=== PATIENT | female | born 1945 | race Caucasian/White ===

== ENCOUNTER 2016-07-27 18:22 | Inpatient (IN) | payer MEDICARE, MEDICAID, OTHER ==
[~2016-07-27] VITALS: Ht 152.4 cm; Wt 68.0 kg
[~2016-07-27 18:22] MED LIST: BACL10TA PO; LISI-567 PO; [UNRECOGNIZED DRUG - CODE] PO
[2016-07-27 18:26] VITALS: BP 100/43; PULSE 108; RESP 16; O2SAT 90
--- NOTE | 2016-07-27 18:27 | ED.REPORT ---
HPI-General Illness Date of Service Jul 27, 2016 ED Provider: Kirk Restrepo Patient is a 70 year old female with an unknown hx who presents to the ED via EMS from [facility] for a L distal femur fracture s/p falling 2 feet from her bed to a concrete floor last night. Patient is non-verbal at baseline and does not have anyone to accompany her. Unable to obtain further history secondary to patient's condition. Nursing Notes Stated Complaint: FEMUR FRACTURE Chief Complaint: Extremity Trauma Nursing Notes Reviewed: Yes Allergies: Coded Allergies: hydromorphone (Verified Allergy, Intermediate, hives, 07/27/16) ondansetron (Verified Allergy, Intermediate, hives, 07/27/16) Contrast Media (Verified Allergy, Unknown, 07/27/16) iodine (Verified Allergy, Unknown, 07/28/16) From care center list Scheduled Baclofen (Baclofen) 10 Mg Tablet 10 MG PO QID Lisinopril (Lisinopril) 20 Mg Tablet 20 MG PO DAILY Methadone (Methadone) 5 Mg Tablet 5 MG PO BID Morphine Sulfate (Morphine Sulfate) 10 Mg/0.5 Ml Syringe 10 MG PO ONCE Scheduled PRN Bisacodyl (Dulcolax Rectal) 10 Mg Supp.rect 10 MG RC DIRECTED PRN PRN For Constipation Miscellaneous Medications Acetaminophen (Acetaminophen Liquid) 325 Mg/10.15 Ml Solution 325 ML PO Magnesium Hydroxide (Milk of Magnesia) 400 Mg/5 Ml Oral.susp 400 MG PO Morphine Sulfate Oral Soln (Morphine Sulfate Oral Soln) 10 Mg/5 Ml Solution 10 MG PO Na Phos,M-B/Na Phos,Di-Ba (Fleet Enema) 133 Ml Enema Unknown Dose RC General Time Seen by MD: 18:27 Transferred From: long term Chief Complaint Other (Left Lower extremity pain ) Hx Obtained From: EMS Arrived By: Ambulance Sudden in Onset?: Yes Past Medical History Past Medical History CVA contractures feeding tube non-verbal Unable to Obtain History Past medical history, Past surgical history, Family history, Smoking history, Social history, Occupation, Ambulatory status Review of Systems Unable to Obtain ROS Mental status Physical Exam Vital Signs Vital Signs Date Time Temp Pulse Resp B/P Pulse Ox O2 Delivery O2 Flow Rate FiO2 07/27/16 21:35 36.5 07/27/16 21:34 87 16 109/43 94 Room Air 07/27/16 18:26 36.6 108 16 100/43 90 Room Air Initial VS: Reviewed, Vital signs abnormal General/Constitutional: Awake, Alert Non-verbal Thin, ill appearing, laying in bed Head / Eyes: Atraumatic, Normocephalic EOM are normal. Pupils are equal, round, and reactive to light ENT: No facial swelling Unable to assess due to pt condition Neck: Supple no tracheal deviation. Respiratory / Chest: Breath sounds NL, Breath sounds = bilat, No respiratory distress Cardiovascular: Regular rhythm, Peripheral circulation NL, Pulses = bilaterally Heart Rate / Rhythm: Positive: Tachycardia Abdomen: Atraumatic, Soft, Non-tender, No guarding, No rebound, BS normoactive Seems to be tender about L knee and up towards proximal LLE No tenderness or flinching with palpation distal to L knee Good DP pulses of bilat LE Good cap refill Unable to assess strength due to pt condition No significant ecchymosis to LLE Skin: Warm, Dry no rashes or pallor appreciated. Mental Status: Positive: Responds to painful stim (with flinching ) Nonverbal and does not communicate Alert Contractures of all extremities Not answering questions or responding to commands Unable to assess strength or sensation Unable to Evaluate: Positive: Unresponsive Unable to assess due to pt condition Interpretation & Diagnostics Lab Results Interpretation Result Diagram: 07/27/16211207/27/162112 Test 07/27/16 21:13 White Blood Count 12.8th/mm3 (3.8-10.1) Red Blood Count 4.50mil/mm3 (3.90-5.20) Hemoglobin 14.3g/dL (12.0-15.6) Hematocrit 41.8% (35.0-46.0) Mean Corpuscular Volume 92.9fL (81-100) Mean Corpuscular Hemoglobin 31.8pg (27.0-35.0) Mean Corpuscular Hemoglobin Concent 34.2% (32.0-37.0) Red Cell Distribution Width 12.3% (12.3-15.4) Platelet Count 232bil/L (150-400) Neutrophils (%) (Auto) 76.7% (40-74) Lymphocytes (%) (Auto) 13.3% (14-46) Monocytes (%) (Auto) 9.6% (4-12) Eosinophils (%) (Auto) 0.1% (0-5) Basophils (%) (Auto) 0.1% (0-3) Prothrombin Time 10.6sec (8.1-12.5) Prothromb Time International Ratio 0.99ratio Activated Partial Thromboplast Time 28.1sec (22.8-33.0) Sodium Level 135mEq/L (134-144) Potassium Level 4.4mEq/L (3.5-5.2) Chloride Level 98mEq/L (97-108) Carbon Dioxide Level 23mmol/L (18-29) Blood Urea Nitrogen 22mg/dL (8-27) Creatinine 0.50mg/dL (0.57-1.00) Estimat Glomerular Filtration Rate 174mL/min (>59) Glucose Level 158mg/dL (60-99) Calcium Level 8.9mg/dL (8.5-10.1) Magnesium Level 2.0mg/dL (1.6-2.6) Total Bilirubin 0.4mg/dL (0.0-1.2) Aspartate Amino Transf (AST/SGOT) 15U/L (0-50) Alanine Aminotransferase (ALT/SGPT) 14U/L (0-32) Alkaline Phosphatase 110U/L (25-165) Troponin T 0.010ug/L (0.0-0.011) Total Protein 6.7g/dL (6.4-8.4) Albumin 3.4g/dL (3.4-5.0) Lipase 19U/L (13-60) Procalcitonin 0.09ng/mL (0.00-0.08) Hold Live Top Tube Received (Received) Alcohols < 10mg/dL (0-10) Lab Results Interpretation: CT LOWER EXTREMITY LEFT: IMPRESSION: Displaced fracture of distal L femur. Harshad Ku M.D. ECG Interpretation ECG Interpretation: Sinus tachycardia with a rate of 104 Low voltage, precordial leads abnormal R wave progression, early transition Time: 20:01 Interpreted by: ED physician X-Ray Chest Interpretation Chest Xray Interpretation: IMPRESSION: 1. No acute pulmonary process. 2. Multiple rib deformities on the right, appearing grossly unchanged. It is noted that there is appearance of questionable increased lucency in the posterior lateral right second rib. Subacute fracture cannot be definitively excluded versus artifact. Dictated by: Mikaela Orourke M.D. on 07/27/2016 at 20:54 Approved by: Mikaela Orourke M.D. on 07/27/2016 at 20:57 View: Portable, 1 view Interpretation / Wet Read by: Interpret - Radiologist X-Ray Interpretation Xray Interpretation: IMPRESSION: Comminuted distal femoral fracture as above. Dictated by: Mikaela Orourke M.D. on 07/27/2016 at 21:12 Approved by: Mikaela Orourke M.D. on 07/27/2016 at 21:13 Study Performed: 2-view X-Ray Ordered: Femur left Interpretation / Wet Read by: Interpret - Radiologist Xray Interpretation: IMPRESSION: Limited evaluation as above without gross visualized fracture. If clinical concern persists, additional imaging is recommended. Dictated by: Mikaela Orourke M.D. on 07/27/2016 at 21:07 Approved by: Mikaela Orourke M.D. on 07/27/2016 at 21:08 X-Ray Ordered: Pelvis (and hip) Interpretation / Wet Read by: Interpret - Radiologist Xray Interpretation: IMPRESSION: Distal femoral fracture with anterior angulation. Dictated by: Mikaela Orourke M.D. on 07/27/2016 at 21:09 Approved by: Mikaela Orourke M.D. on 07/27/2016 at 21:12 X-Ray Ordered: Knee left Interpretation / Wet Read by: Interpret - Radiologist CT Head Interpretation IMPRESSION: 1. No acute intracranial process. 2. Moderate atrophy and chronic microvascular ischemic changes. 3. Ventricular shunt as above. No priors are available for comparison. Dictated by: Mikaela Orourke M.D. on 07/27/2016 at 21:18 Approved by: Mikaela Orourke M.D. on 07/27/2016 at 21:19 Study: Head CT no contrast Interpretation / Wet Read by: Interpret - Radiologist CT C-Spine Interpretation IMPRESSION: Multilevel degenerative changes without visualized fracture. Dictated by: Mikaela Orourke M.D. on 07/27/2016 at 21:16 Approved by: Mikaela Orourke M.D. on 07/27/2016 at 21:18 Study type: CT no contrast Interpretation / Wet Read by: Interpret - Radiologist Re-Eval/Medical Decision Med Decision/Clinical Course In summary, 70-year-old female presenting to the ED for evaluation after a fall. She does have a distal left femur fracture. Patient's care is competent by the fact that she is nonverbal at baseline. Rest of her workup here did not demonstrate any other injuries at this time. Head CT with no evidence of acute bleed or abnormality, cervical spine CT also negative for acute abnormality. Laboratory studies reviewed, mildly elevated white blood cell count. Neurovascular status intact distal to the injury. Discussed with Dr. Benito. We will make her nothing by mouth at midnight, possible trip to the OR tomorrow. No need for reduction or any other intervention with respect to her fracture at this time. Discussed the patient with the hospitalist, who will admit overnight. Time of Eval: 20:07 Re-Evaluation/Progress Note: After meds were given, pt developed hives on her R arm where IV is in place. She does not appear to have respiratory symptoms and is improving with Benadryl. Time of Eval: 22:08 Re-Evaluation/Progress Note: Informed pt of plan for admission. Consultation #1: Referral / Consult Name: Anup Benito MD Consulted With: Orthopedic Call Returned at: 21:56 Slot Operations Manager: Agrees with eval, Agrees with plan Note: Discussed patient's case. NPO overnight and non-contrast CT of femur. Consultation #2: Referral / Consult Name: John Ocampo MD Consulted With: Hospitalist Call Returned at: 22:16 Slot Operations Manager: Will see patient, Agrees with eval, Agrees with plan, Accepts admit Note: Discussed pt's case. Accepts admit. Counseled Regarding: Diagnosis, Lab results, Need for admission Discharge & Departure Primary Impression: Femoral distal fracture Encounter type: initial encounter Fracture type: closed Fracture morphology : unspecified fracture morphology Laterality: left Qualified Code: S72.402A - Unspecified fracture of lower end of left femur, initial encounter for closed fracture Disposition: ADMITTED TO HOSPITAL Discharge Condition All VS Reviewed: Yes Condition: Stable Referrals: OTHER,PHYSICIAN (PCP) Ashley Schaeffer MD (Family) Scribe Attestation Portions of this note were transcribed by Huey Abbasi. I, Dr. Restrepo personally performed the history, physical exam and medical decision-making; I reviewed and confirmed the accuracy of the information in the transcribed note. Signed by: Huey Abbasi 07/27/16, 0005 copies to: Ashley Schaeffer MD, William B MD Jul 27, 2016 18:27 HUEY ABBASI Jul 27, 2016 19:25
[2016-07-27] MEDS ORDERED: 0.9% Sodium Chloride 1,000 ML IV ONE (19:33)
[2016-07-27] MEDS ORDERED: Ondansetron 2 mg/mL 2 mL Inj IVPUSH PRN ×2 (19:35→23:10)
[2016-07-27] MEDS ORDERED: HYDROmorphone 0.5 mg/0.5 mL iSecure Syringe IVPUSH PRN (19:35)
--- NOTE | 2016-07-27 20:59 | DRSVH ---
PROCEDURE: X-RAY CHEST ONE VIEW, PORTABLE ([id number]) INDICATIONS: fall TECHNIQUE: One view of the chest was acquired. COMPARISON: None. FINDINGS: Limited examination secondary to patient positioning. Surgical changes and devices: None. Lungs and pleura: No pleural effusions or pneumothorax. Lungs are clear. Mediastinum: Mediastinal contours appear normal. Heart size is normal. Bones and chest wall: No suspicious bony lesions. Overlying soft tissues appear unremarkable. Ther e is deformity of multiple right sided ribs. These appear unchanged compared to prior exam, with the exception of potential increased lucency within the second posterior lateral rib. However, this could be secondary to positioning. IMPRESSION: 1. No acute pulmonary process. 2. Multiple rib deformities on the right, appearing grossly unchanged. It is noted that there is appe arance of questionable increased lucency in the posterior lateral right second rib. Subacute fracture cannot be definitively excluded versus artifact. Dictated by: Mikaela Orourke M.D. on 07/27/2016 at 20:54 Approved by: Mikaela Orourke M.D. on 07/27/2016 at 20:57
--- NOTE | 2016-07-27 21:10 | DRSVH ---
PROCEDURE: X-RAY PELVIS W/LAT HIP (LT) ([id number]) INDICATIONS: fall TECHNIQUE: AP pelvis with lateral view(s) of the left hip(s). COMPARISON: None. FINDINGS: Bones: There is significantly suboptimal patient positioning. However, no gross hip fracture is ident ified. Bones and the pubic symphysis are overlapping, limiting evaluation. However, no gross fracture s identified. The left iliac wing is not well-visualized for evaluation. Soft tissues: The visualized bowel gas pattern is normal. No suspicious soft tissue calcifications. IMPRESSION: Limited evaluation as above without gross visualized fracture. If clinical concern persis ts, additional imaging is recommended. Dictated by: Mikaela Orourke M.D. on 07/27/2016 at 21:07 Approved by: Mikaela Orourke M.D. on 07/27/2016 at 21:08
--- NOTE | 2016-07-27 21:14 | DRSVH ---
PROCEDURE: X-RAY LEFT KNEE, ONE OR TWO VIEWS ([id number]) INDICATIONS: fall TECHNIQUE: 2 views of the knee were acquired. COMPARISON: None. FINDINGS: Bones: There is a comminuted fracture of the distal femur immediately superior to the femoral condyle s. It demonstrates anterior angulation with an approximate 28 mm overlap of proximal and distal fragm ents. Soft tissues: No joint effusion. No suspicious soft tissue calcifications. There is focal area of high density material overlying the inferior joint space of uncertain etiology. IMPRESSION: Distal femoral fracture with anterior angulation. Dictated by: Mikaela Orourke M.D. on 07/27/2016 at 21:09 Approved by: Mikaela Orourke M.D. on 07/27/2016 at 21:12
--- NOTE | 2016-07-27 21:15 | DRSVH ---
PROCEDURE: X-RAY LEFT FEMUR, TWO VIEWS ([id number]) INDICATIONS: fall TECHNIQUE: 2 views of the femur were acquired. COMPARISON: None. FINDINGS: Bones: Comminuted fracture of the distal femur medially superior to the femoral condyles. There is an terior angulation. Fracture overlap is better characterized on knee x-ray dated 07/27/16. Soft tissues: No suspicious soft tissue calcifications or masses. IMPRESSION: Comminuted distal femoral fracture as above. Dictated by: Mikaela Orourke M.D. on 07/27/2016 at 21:12 Approved by: Mikaela Orourke M.D. on 07/27/2016 at 21:13
--- NOTE | 2016-07-27 21:20 | DRSVH ---
PROCEDURE: CT CERVICAL SPINE WITHOUT CONTRAST ([id number]) INDICATIONS: fall TECHNIQUE: Noncontrast 3 mm thick sections acquired from the skull base to the T4 level. Sagittal and coronal r eformats were then constructed. For radiation dose reduction, the following was used: automated exp osure control, adjustment of mA and/or kV according to patient size. COMPARISON: None. FINDINGS: Image quality: Excellent. Bones: No fractures or dislocations. Visualized superior ribs are intact. There is trace anterolis thesis of C2 on C3. Multilevel degenerative changes are present within the cervical spine. Soft tissues: Prevertebral soft tissues are normal in thickness. No paravertebral hematomas. No ap ical pneumothoraces. IMPRESSION: Multilevel degenerative changes without visualized fracture. Dictated by: Mikaela Orourke M.D. on 07/27/2016 at 21:16 Approved by: Mikaela Orourke M.D. on 07/27/2016 at 21:18
--- NOTE | 2016-07-27 21:21 | DRSVH ---
PROCEDURE: CT BRAIN WITHOUT CONTRAST ([id number]) INDICATIONS: fall TECHNIQUE: Noncontrast 4.5 mm thick angled axial sections acquired from the foramen magnum to the vertex, with c oronal reformats. COMPARISON: None. FINDINGS: Image quality: Excellent. CSF spaces: Basal cisterns are patent. No extra-axial fluid collections. The ventricles are symmet gutierrez in size and shape. Ventricular shunt is present from a right posterior approach with distal tip immediately anterior to the right frontal horn. No priors are available for comparison. Brain: No intracranial bleeds or masses. There is cerebral volume loss for age, with resultant vent ricular and sulcal prominence. There are periventricular and deep white matter chronic small vessel ischemic changes. There is intracranial internal carotid artery atherosclerosis. Skull and face: Calvarium and visualized facial bones appear intact, without suspicious lesions. Sinuses: Visualized sinuses and mastoids are clear. IMPRESSION: 1. No acute intracranial process. 2. Moderate atrophy and chronic microvascular ischemic changes. 3. Ventricular shunt as above. No priors are available for comparison. Dictated by: Mikaela Orourke M.D. on 07/27/2016 at 21:18 Approved by: Mikaela Orourke M.D. on 07/27/2016 at 21:19
[2016-07-27 21:22] LABS: BASOPHILS % (AUTO) 0.1 % (0-3); EOSINOPHILS % (AUTO) 0.1 % (0-5); MONOCYTES % (AUTO) 9.6 % (4-12); Mean Corpuscular Hemoglobin 31.8 pg (27.0-35.0); Mean Corpuscular Volume 92.9 fL (81-100); NEUTROPHILS % (AUTO) 76.7 % (40-74); Platelet Count 232 bil/L (150-400)
[2016-07-27 21:34] VITALS: BP 109/43; PULSE 87; RESP 16; O2SAT 94
[2016-07-27 21:52] LABS: INR 0.99 ratio
[2016-07-27 22:27] LABS: Lipase 19 U/L (13-60)
[2016-07-27 23:35] VITALS: BP 107/63; PULSE 105; RESP 16; O2SAT 94
[2016-07-28] VITALS (15 sets, daily range): BP systolic 95–141; BP diastolic 38–84; PULSE 83–135; RESP 13–18; O2SAT 88–99
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
[2016-07-28] MEDS ORDERED: MAGN400O4 G-TUBE (01:16)
[2016-07-28] MEDS ORDERED: BISA10SU61 RC (01:18)
[2016-07-28] MEDS ORDERED: NA P133E23 PR (01:19)
[2016-07-28] MEDS ORDERED: ACET325S PO (01:21)
[2016-07-28] MEDS ORDERED: MORP10SO G-TUBE ×2 (01:26→08:15)
[2016-07-28] MEDS ORDERED: METH5TAB3 G-TUBE (02:26)
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
[2016-07-28] MEDS: 0.9% Sodium Chloride 1,000 ML IV SCH ×2 (05:41→23:26)
--- NOTE | 2016-07-28 07:35 | NUR ---
Contacted [facility] multiple times to obtain history and complete RX list, list was received at 0645 via fax and placed in chart. MD notified of pain regime of 10mg Morphine daily, additional PRN morphine, and 5mg methadone daily at 0400. Care continues
[2016-07-28] MEDS ORDERED: CHOL200047 G-TUBE (07:52)
[2016-07-28] MEDS ORDERED: DOCU-41 G-TUBE (07:52)
[2016-07-28] MEDS ORDERED: ACET160S G-TUBE (07:52)
[2016-07-28] MEDS ORDERED: CALC-243 G-TUBE (08:04)
[2016-07-28] MEDS ORDERED: BACL10TA G-TUBE (08:04)
[2016-07-28] MEDS ORDERED: LISI30TA5 G-TUBE (08:04)
[2016-07-28] MEDS: Famotidine Inj 20 MG in IV Premix 1 EACH IV SCH ×3 (08:30→21:14)
[2016-07-28] MEDS: Acetaminophen IV 1,000 MG in IV Premix 1 EACH IV PRN ×2 (08:51→20:58)
--- NOTE | 2016-07-28 11:36 | DRSVH ---
PROCEDURE: CT FEMUR LEFT W/O CONTRAST ([id number]) INDICATIONS: Left distal femur fx; eval if extends into joint TECHNIQUE: Noncontrast 3 mm axial sections acquired of the left femur, with coronal and sagittal reformats. For radiation dose reduction, the following was used: automated exposure control, adjustment of mA and/ or kV according to patient size. COMPARISON: [facility], CR, XR FEMUR 2VW LT, 07/27/2016, 20:06. [facility], CR, XR PELVIS W LATERAL HIP LT, 07/27/2016, 20:06. FINDINGS: Image quality: Diagnostic. Bones: The bone mineralization is diffusely decreased. This does result in difficulty evaluating the osseous structures for subtle abnormalities. There is a transverse mildly comminuted fracture prese nt involving the distal shaft of the left femur with posterior displacement of the distal fracture fr agment and mild lateral angulation of the distal fracture fragment. No fracture lines are seen exten ding into the knee joint. No additional fractures of the knee are evident. Imaged portions of the k nee joint are within normal limits. Incidental note is made of fusion of the proximal tibiofibular j oint. There probably are degenerative changes of the knee joint. There is mild depression noted inv olving the lateral tibial plateau, which probably is related to previous trauma rather than an acute fracture. While the majority of the tibia and fibula are included on this examination, the are not a dequately evaluated related to beam hardening artifact as the bone is within the plane of imaging. A high attenuation structure is identified within the subcutaneous tissues along the region of the kne e joint, which is of uncertain etiology and may represent debris within the knee or subcutaneous tiss ues. Soft tissues: Soft tissue edema is noted about the fracture site. There is a small knee joint effusi on. Mild to moderate muscle atrophy is noted involving the quadriceps, hamstrings, and adductor musc le groups. Imaged portions of the pelvis demonstrate an apparent chronic right superior pubic ramus fracture. It high attenuation material within the urinary bladder is noted, which is layering depend ently and probably represent small bladder calculi. IMPRESSION: 1. Minimally comminuted distal left femoral shaft fracture without intra-articular extension. 2. Prominent osteopenia of the left femur. 3. Mild depression of that the lateral proximal tibial plateau is felt to be related to previous tra corin, particularly given fusion of the proximal tibiofibular joint. Please correlate clinically. 3. High attenuation material within the subcutaneous tissues along the lateral margin of the knee is of uncertain etiology or significance. This may represent debris. 4. High attenuation material within the urinary bladder is suspicious for multiple bladder calculi. Note: The preliminary report provided by [facility] is concordant with the final report. Dictated by: Alfredo Goode M.D. on 07/28/2016 at 10:26 Approved by: Alfredo Goode M.D. on 07/28/2016 at 10:35
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
--- NOTE | 2016-07-28 13:18 | NUR ---
Pt off unit Pt to O.R. at 1315 hrs.
[2016-07-28] MEDS ORDERED: CeFAZolin 2 Gm/50 mL D5W Duplex Bag IV ONE (13:31)
[2016-07-28] MEDS: Lactated Ringer's 1,000 ML IV SCH ×2 (13:42→15:34)
[2016-07-28] MEDS ORDERED: Lactated Ringer's 500 ML IV PRN (14:29)
[2016-07-28] MEDS ORDERED: EPHEDrine Sulfate 50 mg/mL Inj IVPUSH PRN (14:30)
[2016-07-28] MEDS ORDERED: Phenylephrine 10,000 mCg/mL Inj IVPUSH PRN (14:30)
[2016-07-28] MEDS ORDERED: Dexamethasone 4 mg/mL Inj IVPUSH PRN (14:30)
[2016-07-28] MEDS ORDERED: MetoCLOpramide 5 mg/mL 2 mL Inj IVPUSH PRN (14:30)
[2016-07-28] MEDS ORDERED: Labetalol 5 mg/mL 4 mL Inj IV PRN (14:30)
[2016-07-28] MEDS ORDERED: Atropine 0.4 mg/mL Inj IVPUSH PRN (14:30)
[2016-07-28] MEDS ORDERED: fentaNYL-PF 50 mCg/mL 2 mL Inj IVPUSH PRN (14:30)
[2016-07-28] MEDS ORDERED: Bupivacaine-MPF 0.5% W/EPI 30 mL Inj INJ ONE (15:34)
--- NOTE | 2016-07-28 16:02 | PCM.ANEP1 ---
Post Anesthesia PACU Phase 1 Assessment Vital Signs Vital Signs Date Time Temp Pulse Resp B/P Pulse Ox O2 Delivery O2 Flow Rate FiO2 07/28/16 15:49 36.8 94 16 110/40 99 Simple Mask 9 07/28/16 12:03 36.7 128 16 141/79 99 Room Air 07/28/16 08:53 97 Anesthetic Administered: GA Level of Alertness: Awake, talking (baseline) CISSE's with Equal Strength: Yes Pain: No Nausea or Vomiting: No CV Function & Hydration Stable: Yes Airway Device: Endotrachial Tube Oxygen Delivery: Simple Mask Lungs: Clear to Auscultation, Normal Air Movement Summary Stable in PACU. VSS PACU Phase 2 Assessment Complications: No Follow up Care: N/A Patient Instructions Provided: N/A Oskar Tabor MD Jul 28, 2016 16:02
--- NOTE | 2016-07-28 16:10 | NUR ---
pt is in OR Addendum: 07/28/16 at 1610 by CUCO KIRKPATRICK CNA Amended: Links added.
[2016-07-28 16:13] LABS: APPEARANCE,URINE CLEAR (CLEAR,HAZY); COLOR,URINE YELLOW (YELLOW); PH,URINE 6.5 (5.0-8.0)
[2016-07-28 16:14] LABS: OCCULT BLOOD,URINE SMALL (NEGATIVE); UROBILINOGEN,URINE NORMAL (NORMAL)
--- NOTE | 2016-07-28 17:21 | PCM.PNMED ---
Subjective Date of Service Jul 28, 2016 Subjective Patient nonverbal Exam Vital Signs Vital Sign - Last Date Time Temp Pulse Resp B/P Pulse Ox O2 Delivery O2 Flow Rate FiO2 07/28/16 17:05 36.4 111 16 128/77 95 Room Air 07/28/16 16:40 6 Intake and Output 07/27/16 07/27/16 07/28/16 Cumulative From/Thru 15:00 23:00 07:00 07/27/16 20:51 - 07/28/16 00:00 Intake Total 999 ml 999 ml Balance 999 ml 999 ml IV Total 999 ml 999 ml Exam Gen.- A, no apparent distress. Head-atraumatic/normocephalic Eyes- open conjunctiva clear, pupils equal, nonicteric Mouth- no deformity of lips ENT- ears no deformity, nose no deformity Neck- supple/trach midline CVS- RRR Lungs-respirations regular and nonlabored GI-flat Musc- no obvious deformity Neuro- cranial nerves II through XII intact to gross examination, nonfocal Skin- warm and dry, no rashes/lesions/wounds noted Psych-nonverbal, I cannot tell if she is lucid Lab and Diagnostics Result Diagram: 07/27/16211207/27/162112 X-Rays, CTs and MRIs CT BRAIN WITHOUT CONTRAST ([id number]) IMPRESSION: 1. No acute intracranial process. 2. Moderate atrophy and chronic microvascular ischemic changes. 3. Ventricular shunt as above. No priors are available for comparison. Dictated by: Mikaela Orourke M.D. on 07/27/2016 at 21:18 CT CERVICAL SPINE WITHOUT CONTRAST ([id number]) IMPRESSION: Multilevel degenerative changes without visualized fracture. Dictated by: Mikaela Orourke M.D. on 07/27/2016 at 21:16 Approved by: Mikaela Orourke M.D. on 07/27/2016 at 21:18 X-RAY CHEST ONE VIEW, PORTABLE ([id number] IMPRESSION: 1. No acute pulmonary process. 2. Multiple rib deformities on the right, appearing grossly unchanged. It is noted that there is appearance of questionable increased lucency in the posterior lateral right second rib. Subacute fracture cannot be definitively excluded versus artifact. Dictated by: Mikaela Orourke M.D. on 07/27/2016 at 20:54 Approved by: Mikaela Orourke M.D. on 07/27/2016 at 20:57 X-RAY LEFT FEMUR, TWO VIEWS ([id number]) IMPRESSION: Comminuted distal femoral fracture as above. Dictated by: Mikaela Orourke M.D. on 07/27/2016 at 21:12 Approved by: Mikaela Orourke M.D. on 07/27/2016 at 21:13 X-RAY PELVIS W/LAT HIP (LT) ([id number]) IMPRESSION: Limited evaluation as above without gross visualized fracture. If clinical concern persists, additional imaging is recommended. Dictated by: Mikaela Orourke M.D. on 07/27/2016 at 21:07 Approved by: Mikaela Orourke M.D. on 07/27/2016 at 21:08 PROCEDURE: X-RAY LEFT KNEE, ONE OR TWO VIEWS ([id number]) IMPRESSION: Distal femoral fracture with anterior angulation. Dictated by: Mikaela Orourke M.D. on 07/27/2016 at 21:09 Approved by: Mikaela Orourke M.D. on 07/27/2016 at 21:12 Assessment & Plan 70-year-old female admitted with hip fracture 07/27 , long-term [facility] resident who presents after a ground-level fall reportedly 2 feet from her bed to a concrete floor the previous night. 07/28 patient apparently had an unremarkable ORIF L hip # Acute displaced comminuted left distal femur fracture ORIF complete 07/28 - Reportedly from a ground-level fall - [facility] reports that the patient has not recieved a tube feeding since noon of July 27 - Morphine 1-2 mg IV Q4 for pain control - Zofran 4-8 mg IV every 4 when necessary # Hx TBI- Patient is nonverbal and fed through her gastrostomy tube # Chronic generalized muscular contracture- baclofen 10mg every 6 hours # chronic pain- - chronic methadone 5mg daily we will resume perhaps 07/29 # HTN-- Lisinopril 30mg daily on hold DVT prophylaxis: Contraindicated given recent trauma GI prophylaxis: Famotidine 20 mg IV twice a day CODE STATUS: POLST from [facility] indicates DNR/DNI with limited interventions however is dated from 2003 but on discussion with [facility] the is reportedly reviewed this document was recently as 2016. GI Prophylaxis: Proton Pump Inhibitor VTE Prophylaxis: SCDs VTE Mechanical Devices: Intermittant Pneumatic CD Resuscitation Status: DNR/DNI:Do Not Resuscitate/Intubate Errol Hernandez MD Jul 28, 2016 17:21
[2016-07-28] MEDS: CeFAZolin Inj 2 GM in IV Premix 1 EACH IV SCH (22:48)
[2016-07-29] VITALS (7 sets, daily range): BP systolic 107–156; BP diastolic 71–85; PULSE 109–130; RESP 16–18; O2SAT 91–94
[2016-07-29] MEDS: 0.9% Sodium Chloride 1,000 ML IV SCH ×3 (01:30→22:59)
[2016-07-29 06:19] LABS: BASOPHILS % (AUTO) 0.1 % (0-3); EOSINOPHILS % (AUTO) 1.4 % (0-5); MONOCYTES % (AUTO) 7.8 % (4-12); Mean Corpuscular Hemoglobin 31.8 pg (27.0-35.0); Mean Corpuscular Volume 95.8 fL (81-100); Platelet Count 143 bil/L (150-400)
[2016-07-29] MEDS: CeFAZolin Inj 2 GM in IV Premix 1 EACH IV SCH (06:32)
--- NOTE | 2016-07-29 06:46 | OP ---
[address] [address] OPERATIVE REPORT PATIENT: ALINA LEDEZMA : 1945 MR#: [id number] ADMIT: 07/27/2016 JOB ID: [id number] DATE OF SURGERY: 07/28/2016 SURGEON: Anup Benito MD WAREHOUSE INSULATION WORKER: Channing Mcwilliams PA-C. Monomer Purification Operator required due to the complexity of the operation. PREOPERATIVE DIAGNOSIS(ES): Closed distal femoral fracture. POSTOPERATIVE DIAGNOSIS(ES): Closed distal femoral fracture. PROCEDURE: 1. Locked retrograded intramedullary nailing. 2. Two plane C-arm fracture reduction and hardware placement. DESCRIPTION OF PROCEDURE: The patient was prepped and draped in usual sterile fashion, placed on the operating room table. The C-arm was brought in and she was reduced over a triangle. An anteromedial approach was made to identify the starting point pin placed across the fracture site with adequate reduction achieved in the AP and lateral planes. Ball-tipped guide placed up the femur and hardware nail depth at 36 mm determined proximal reaming followed by distal reaming to 14.5 with a 13 mm nail utilized. The nail was placed in the femur using two plane C-arm control. Two distal fixation screws were utilized. The proximal static position screw was identified, hole was rounded up and drilled, and a 32 mm screw was utilized for proximal fixation. All screws had very marginal purchase to the very soft bone, however, the fracture was noted to be quite stable following this. Wounds were irrigated with sterile irrigant. Construct disassembled. All final positioning and confirmation of hardware placement with two plane C-arm obtained. Deep irrigation with sterile irrigant. Closure of the arthrotomy with #2 Quill followed by 2-0 Vicryl and a 4-0 intracuticular. Lateral incision made for distal fixation and proximal fixation. Interlocking screws closed with a 3-0 nylon. Sterile dressing was applied. The patient was returned to the recovery room in stable condition. There were no complications. POSTOPERATIVE PLAN: Will be for nonweightbearing and brace support. Suture removal at two weeks. Follow-up x-rays at six and 12 weeks. The patient has severe contractures of her knee, and it will be important not to overextend range of motion as stresses will be passed to the fracture site, therefore limited range of motion until fracture healing is noted.
[2016-07-29] MEDS: Famotidine Inj 20 MG in IV Premix 1 EACH IV SCH ×2 (08:06→20:59)
--- NOTE | 2016-07-29 08:21 | NUR ---
Pain/ nonverbal/ guests Visitors in room at shift start. Patient remains NPO and no flushes or food via PEG tube- no materials available to flush tube, charge notified. HR of 140 at start of shift, decreased to 100 with pain medication over several hours. Pt smiles as a 'yes' response and gives a blank stare or turns eyes to the side as a 'no' IV infusing Ns at 100, R hand shows some edema and dayshift RN notified. Bruises on L forearm. CPOX in place and on tele. Pt refuses O2, mask available for blow-by supplementation, with HR reduced O2 remains above 87% and pt appears to sleep intermittently. She does like the TV on while she sleeps. Care continues
--- NOTE | 2016-07-29 09:08 | PCM.PNORTH ---
Subjective Date of Service: Jul 29, 2016 Visit Information: Reason for Visit Distal Femur Fracture Surgery/Surgery Date L NAILING DISTAL FEMUR 07/28/16 Post-Op Day # 1 Date of Admission: Jul 27, 2016 at 22:46 Hospital Day # Objective Exam Vital Signs and I/O Vital Sign - Last Date Time Temp Pulse Resp B/P Pulse Ox O2 Delivery O2 Flow Rate FiO2 07/29/16 07:59 36.2 110 16 137/83 91 blow bye 5L 07/29/16 05:22 9.00 Intake and Output 07/28/16 07/28/16 07/29/16 Cumulative From/Thru 15:00 23:00 07:00 07/27/16 20:51 - 07/29/16 06:41 Intake Total 1519 ml 546 ml 0 ml 3064 ml Output Total 378 ml 428 ml 400 ml 1206 ml Balance 1141 ml 118 ml -400 ml 1858 ml Intake Oral 0 ml 0 ml 0 ml 0 ml IV Total 1519 ml 546 ml 3064 ml Output Urine Total 378 ml 428 ml 400 ml 1206 ml # Voids 2 1 3 # Bowel Movements 0 0 0 Lab & Micro Results Laboratory Tests Test 07/28/16 09:19 07/28/16 15:59 07/29/16 05:40 Thyroid Stimulating Hormone (TSH) 2.440uIU/mL (0.450-4.500) Free Thyroxine 1.35ng/dL (0.82-1.77) Parathyroid Hormone (Intact) 70pg/mL (15-65) Urine Color Yellow (YELLOW) Urine Appearance Clear (CLEAR,HAZY) Urine pH 6.5 (5.0-8.0) Urine Specific [place] 1.015 (1.003-1.035) Urine Protein Negativemg/dL (NEG,TRACE) Urine Glucose (UA) Negativemg/dL (NEGATIVE) Urine Ketones Negativemg/dL (NEGATIVE) Urine Occult Blood Small (NEGATIVE) Urine Nitrite Negative (NEGATIVE) Urine Bilirubin Negative (NEGATIVE) Urine Urobilinogen Normalmg/dL (NORMAL) Urine Leukocyte Esterase Trace (NEGATIVE) Urine RBC 3-10/hpf (0-2) Urine WBC 6-10/hpf (0-5) Urine Epithelial Cells Few/hpf (NONE-MOD) Urine Crystals None seen (NONE SEEN) Urine Bacteria Few/hpf (NONE-FEW) Urine Hyaline Casts None/lpf (NONE) Urine Granular Casts None seen (NONE SEEN) Urine Waxy Casts None seen (NONE SEEN) Urine Red Blood Cell Casts None seen (NONE SEEN) Urine White Blood Cell Casts None seen (NONE SEEN) Urine Mucus Present (None Seen) Urine Trichomonas None seen (NONE SEEN) Urine Yeast None (NONE SEEN) Urinalysis Comment None Urine Culture Reflexed Indicated White Blood Count 11.7th/mm3 (3.8-10.1) Red Blood Count 3.59mil/mm3 (3.90-5.20) Hemoglobin 11.4g/dL (12.0-15.6) Hematocrit 34.4% (35.0-46.0) Mean Corpuscular Volume 95.8fL (81-100) Mean Corpuscular Hemoglobin 31.8pg (27.0-35.0) Mean Corpuscular Hemoglobin Concent 33.1% (32.0-37.0) Red Cell Distribution Width 12.3% (12.3-15.4) Platelet Count 143bil/L (150-400) Neutrophils (%) (Auto) 78.0% (40-74) Lymphocytes (%) (Auto) 12.4% (14-46) Monocytes (%) (Auto) 7.8% (4-12) Eosinophils (%) (Auto) 1.4% (0-5) Basophils (%) (Auto) 0.1% (0-3) Sodium Level 138mEq/L (134-144) Potassium Level 4.2mEq/L (3.5-5.2) Chloride Level 103mEq/L (97-108) Carbon Dioxide Level 21mmol/L (18-29) Blood Urea Nitrogen 14mg/dL (8-27) Creatinine 0.50mg/dL (0.57-1.00) Estimat Glomerular Filtration Rate 174mL/min (>59) Glucose Level 103mg/dL (60-99) Calcium Level 8.2mg/dL (8.5-10.1) Microbiology 07/25/16 Blood Culture - Preliminary, Resulted NO GROWTH AFTER 24 HOURS 07/28/16 Urine Culture - Preliminary, Resulted No growth to date Result Diagram: 07/29/16 0540 07/29/16 0540 Assessment & Plan Impression POD #1 status post Left femur IM nail Problems: Plan Weightbearing: Nonweightbearing left lower extremity DVT prophylaxis: Lovenox 40 mg subcutaneous 2 weeks followed by aspirin 325 mg twice a day 4 weeks Physical therapy for transfers, progressive ambulation, therapeutic exercise Wound care: change dressing on POD #2 Discharge plan: Discharge back to [facility] where the patient normally resides when medically stable Follow-up plan: In 2 weeks at [facility] with PA for wound check and at [address] Benito with x-rays Pain Management: Morphine VTE Prophylaxis: SCDs Resuscitation Status: DNR/DNI:Do Not Resuscitate/Intubate Viktoria Jeronimo PA-C Jul 29, 2016 09:08
--- NOTE | 2016-07-29 10:01 | PCM.PNORTH ---
Subjective Date of Service: Jul 29, 2016 Visit Information: Reason for Visit Distal Femur Fracture Surgery/Surgery Date L NAILING DISTAL FEMUR 07/28/16 Post-Op Day # 1 Date of Admission: Jul 27, 2016 at 22:46 Hospital Day # Subjective Patient is sitting up in bed she is awake and alert. She is nonverbal. She does not express any pain. Objective Exam Objective Patient is sitting up in bed. Vital Signs and I/O Vital Sign - Last Date Time Temp Pulse Resp B/P Pulse Ox O2 Delivery O2 Flow Rate FiO2 07/29/16 07:59 36.2 110 16 137/83 91 blow bye 5L 07/29/16 05:22 9.00 Intake and Output 07/28/16 07/28/16 07/29/16 Cumulative From/Thru 15:00 23:00 07:00 07/27/16 20:51 - 07/29/16 06:41 Intake Total 1519 ml 546 ml 0 ml 3064 ml Output Total 378 ml 428 ml 400 ml 1206 ml Balance 1141 ml 118 ml -400 ml 1858 ml Intake Oral 0 ml 0 ml 0 ml 0 ml IV Total 1519 ml 546 ml 3064 ml Output Urine Total 378 ml 428 ml 400 ml 1206 ml # Voids 2 1 3 # Bowel Movements 0 0 0 Lab & Micro Results Laboratory Tests Test 07/28/16 15:59 07/29/16 05:40 Urine Color Yellow (YELLOW) Urine Appearance Clear (CLEAR,HAZY) Urine pH 6.5 (5.0-8.0) Urine Specific [place] 1.015 (1.003-1.035) Urine Protein Negativemg/dL (NEG,TRACE) Urine Glucose (UA) Negativemg/dL (NEGATIVE) Urine Ketones Negativemg/dL (NEGATIVE) Urine Occult Blood Small (NEGATIVE) Urine Nitrite Negative (NEGATIVE) Urine Bilirubin Negative (NEGATIVE) Urine Urobilinogen Normalmg/dL (NORMAL) Urine Leukocyte Esterase Trace (NEGATIVE) Urine RBC 3-10/hpf (0-2) Urine WBC 6-10/hpf (0-5) Urine Epithelial Cells Few/hpf (NONE-MOD) Urine Crystals None seen (NONE SEEN) Urine Bacteria Few/hpf (NONE-FEW) Urine Hyaline Casts None/lpf (NONE) Urine Granular Casts None seen (NONE SEEN) Urine Waxy Casts None seen (NONE SEEN) Urine Red Blood Cell Casts None seen (NONE SEEN) Urine White Blood Cell Casts None seen (NONE SEEN) Urine Mucus Present (None Seen) Urine Trichomonas None seen (NONE SEEN) Urine Yeast None (NONE SEEN) Urinalysis Comment None Urine Culture Reflexed Indicated White Blood Count 11.7th/mm3 (3.8-10.1) Red Blood Count 3.59mil/mm3 (3.90-5.20) Hemoglobin 11.4g/dL (12.0-15.6) Hematocrit 34.4% (35.0-46.0) Mean Corpuscular Volume 95.8fL (81-100) Mean Corpuscular Hemoglobin 31.8pg (27.0-35.0) Mean Corpuscular Hemoglobin Concent 33.1% (32.0-37.0) Red Cell Distribution Width 12.3% (12.3-15.4) Platelet Count 143bil/L (150-400) Neutrophils (%) (Auto) 78.0% (40-74) Lymphocytes (%) (Auto) 12.4% (14-46) Monocytes (%) (Auto) 7.8% (4-12) Eosinophils (%) (Auto) 1.4% (0-5) Basophils (%) (Auto) 0.1% (0-3) Sodium Level 138mEq/L (134-144) Potassium Level 4.2mEq/L (3.5-5.2) Chloride Level 103mEq/L (97-108) Carbon Dioxide Level 21mmol/L (18-29) Blood Urea Nitrogen 14mg/dL (8-27) Creatinine 0.50mg/dL (0.57-1.00) Estimat Glomerular Filtration Rate 174mL/min (>59) Glucose Level 103mg/dL (60-99) Calcium Level 8.2mg/dL (8.5-10.1) Microbiology 07/25/16 Blood Culture - Preliminary, Resulted NO GROWTH AFTER 24 HOURS 07/28/16 Urine Culture - Preliminary, Resulted No growth to date Result Diagram: 07/29/1640 07/29/16 0540 General Appearance: No Acute Distress Extremities: Distal Pulses Palpable SURGICAL WOUND : Wound Location/Description Left lower extremity: Surgical dressing is clean dry and intact. The hinged postoperative brace is locked at 70 which is the patient's position of comfort. Assessment & Plan Impression POD #1 status post left femur retrograde IM nailing Problems: Plan Weightbearing: Nonweightbearing Postop hinged brace locked at 70, which is the patient's position of comfort DVT prophylaxis: None Physical therapy for transfers. The patient has significant contracture of the left knee therefore do not overstress motion for the knee as this will stress the surgical repair and fracture site Wound care: PA will change dressing on postop day 2 Discharge plan: Discharge back to [facility] when medically stable Follow-up plan: In 2 weeks at [facility] with PA for wound check and at [address] Benito with x-rays Pain Management: Morphine IV/ PEG tube VTE Prophylaxis: Other (none due to history of traumatic brain injury) Resuscitation Status: DNR/DNI:Do Not Resuscitate/Intubate Viktoria Jeronimo PA-C Jul 29, 2016 10:01
--- NOTE | 2016-07-29 10:44 | NUR ---
AUGUST: Patient is non verbal and has TBI, she is unable to sign AUGUST or accept message. Asked SHEAR HELPER to follow up with family.
[2016-07-29] MEDS ORDERED: MeTOProlol 1 mg/mL 5 mL Inj IV ONE (13:59)
--- NOTE | 2016-07-29 14:07 | NUR ---
Gave access to [facility] and faxed facesheet, patient comes from them and is likely to return when ready.
--- NOTE | 2016-07-29 15:01 | NUR ---
Social Work- Initial Assessment/ Readiness for Discharge Data: See Initial Assessment. Pt is a 70 year old female admitted 07/27/16 for distal femur fracture per H&P. Pt's insurance is [facility] and [facility] [employer]. Pt's PCP is Jaleel Schaeffer at [facility]. Pt's NOK is Troy Wiley [phone] or [phone]. Pt's readmit risk score is 5 high risk. Pt was admitted after a ground level fall at [facility], pt is bed bound. Incident Reported #[id number]. Pt is non verbal due to a TBI many years ago. Pt resides at [facility] and has for the last 23 years, per . COMPUTER REPAIR INSTRUCTOR spoke with pt's Troy Wiley regarding discharge plan, Troy is agreeable to pt returning to [facility]. T/C to Megan, admissions at [facility], who is agreeable to pt returning at discharge. Troy states that pt is bed bound or chair bound at baseline and is a total assist for all ADLs and mobility. Pt is fed through a PEG tube at [facility]. Pt to discharge to [facility], [facility] to follow. Paperwork in chart. SW will continue to follow. All updated and agreeable to plan. Assessment: Pt who is total assist at baseline and will return to [facility] Plan: Pt anticipated to return to [facility] when medically stable. [facility] to follow. Paperwork in chart. SW will continue to follow. All updated and agreeable to plan. ARIANNA Rowley Addendum: 07/29/16 at 1512 by KARLOS CHAN Amended: Links added.
--- NOTE | 2016-07-29 15:12 | NUR ---
AUGUST signed by pt's NOK and JEAN PIERRE Wiley by phone. Pt is nonverbal at baseline. Troy signs by phone as he is not able to come to the hospital often secondary to dialysis schedule. Radha Kim MSW
--- NOTE | 2016-07-29 15:38 | PCM.PNMED ---
Subjective Date of Service Jul 29, 2016 Subjective Nonverbal Exam Vital Signs Vital Sign - Last Date Time Temp Pulse Resp B/P Pulse Ox O2 Delivery O2 Flow Rate FiO2 07/29/16 15:13 37.5 116 16 138/76 91 Simple Mask 7.00 Intake and Output 07/28/16 07/28/16 07/29/16 Cumulative From/Thru 15:00 23:00 07:00 07/27/16 20:51 - 07/29/16 06:41 Intake Total 1519 ml 546 ml 0 ml 3064 ml Output Total 378 ml 428 ml 400 ml 1206 ml Balance 1141 ml 118 ml -400 ml 1858 ml Intake Oral 0 ml 0 ml 0 ml 0 ml IV Total 1519 ml 546 ml 3064 ml Output Urine Total 378 ml 428 ml 400 ml 1206 ml # Voids 2 1 3 # Bowel Movements 0 0 0 Exam Gen.- A, no apparent distress. Head-atraumatic/normocephalic Eyes- open conjunctiva clear, pupils equal, nonicteric Mouth- no deformity of lips ENT- ears no deformity, nose no deformity Neck- supple/trach midline CVS-tachycardic Lungs-respirations regular and nonlabored GI-flat Musc- no obvious deformity Neuro- cranial nerves II through XII intact to gross examination, nonfocal Skin- warm and dry, no rashes/lesions/wounds noted Psych-nonverbal, smiles and seems to interact Lab and Diagnostics Result Diagram: 07/29/16 0540 07/29/16 0540 X-Rays, CTs and MRIs CT BRAIN WITHOUT CONTRAST ([id number]) IMPRESSION: 1. No acute intracranial process. 2. Moderate atrophy and chronic microvascular ischemic changes. 3. Ventricular shunt as above. No priors are available for comparison. Dictated by: Mikaela Orourke M.D. on 07/27/2016 at 21:18 CT CERVICAL SPINE WITHOUT CONTRAST ([id number]) IMPRESSION: Multilevel degenerative changes without visualized fracture. Dictated by: Mikaela Orourke M.D. on 07/27/2016 at 21:16 Approved by: Mikaela Orourke M.D. on 07/27/2016 at 21:18 X-RAY CHEST ONE VIEW, PORTABLE ([id number] IMPRESSION: 1. No acute pulmonary process. 2. Multiple rib deformities on the right, appearing grossly unchanged. It is noted that there is appearance of questionable increased lucency in the posterior lateral right second rib. Subacute fracture cannot be definitively excluded versus artifact. Dictated by: Mikaela Orourke M.D. on 07/27/2016 at 20:54 Approved by: Mikaela Orourke M.D. on 07/27/2016 at 20:57 X-RAY LEFT FEMUR, TWO VIEWS ([id number]) IMPRESSION: Comminuted distal femoral fracture as above. Dictated by: Mikaela Orourke M.D. on 07/27/2016 at 21:12 Approved by: Mikaela Orourke M.D. on 07/27/2016 at 21:13 X-RAY PELVIS W/LAT HIP (LT) ([id number]) IMPRESSION: Limited evaluation as above without gross visualized fracture. If clinical concern persists, additional imaging is recommended. Dictated by: Mikaela Orourke M.D. on 07/27/2016 at 21:07 Approved by: Mikaela Orourke M.D. on 07/27/2016 at 21:08 PROCEDURE: X-RAY LEFT KNEE, ONE OR TWO VIEWS ([id number]) IMPRESSION: Distal femoral fracture with anterior angulation. Dictated by: Mikaela Orourke M.D. on 07/27/2016 at 21:09 Approved by: Mikaela Orourke M.D. on 07/27/2016 at 21:12 Assessment & Plan 70-year-old female admitted with hip fracture 07/27 , long-term [facility] resident who presents after a ground-level fall reportedly 2 feet from her bed to a concrete floor the previous night. 07/28 patient apparently had an unremarkable ORIF L hip 07/29 minute patient's advocate today. She seems much more awake and interactive. She has hypertension/tachycardia him starting metoprolol for this. Clinically she is stable. # HTN-- Lisinopril 30mg daily on hold, - Starting metoprolol 25 mg every 3 times a day for hypertension/tachycardia # Acute displaced comminuted left distal femur fracture ORIF complete 07/28 - Reportedly from a ground-level fall - [facility] reports that the patient has not recieved a tube feeding since noon of July 27 - Morphine 1-2 mg IV Q4 for pain control - Zofran 4-8 mg IV every 4 when necessary # Hx TBI- Patient is nonverbal and fed through her gastrostomy tube # Chronic generalized muscular contracture- baclofen 10mg every 6 hours # chronic pain- - chronic methadone 5mg daily we will resume perhaps 07/29 DVT prophylaxis: Contraindicated given recent trauma GI prophylaxis: Famotidine 20 mg IV twice a day CODE STATUS: POLST from [facility] indicates DNR/DNI with limited interventions however is dated from 2003 but on discussion with [facility] the is reportedly reviewed this document was recently as 2017. GI Prophylaxis: Proton Pump Inhibitor VTE Prophylaxis: Other (none due to history of traumatic brain injury) VTE Mechanical Devices: Intermittant Pneumatic CD Resuscitation Status: DNR/DNI:Do Not Resuscitate/Intubate Errol Hernandez MD Jul 29, 2016 15:38
--- NOTE | 2016-07-29 15:40 | NUR ---
NUTRITION ASSESSMENT: ASSESS: 70 YO female admitted for distal femur fracture s/p repair on 07/28. Order received to initiate TF. PMHx: Traumatic brain injury, pt non verbal. LABS: Reviewed. MEDS: Reviewed. GI: No BM reported at this time. CURRENT WT: 68 kg. HOME TF: Jevity 1.2, 480 ml BID and 240 mL (1200 ML/DAY), providing 1440 kcals and 56 g protein per day. H20 flush of 300 ml 3 times per day. EST. NEEDS: 8718-8708 kcals (20-25 kcals/kg BW), 55-80 g protein (1.2-1.5 g/kg BW), 6199-0354 mL fluid (20-25 ml/kg BW) NUTRITION DIAGNOSIS: 1.) Chewing / Swallowing difficulties related to traumatic brain injury as evidenced by chronic PEG tube feedings. NUTRITION INTERVENTION: 1.) Recommend TF of Jevity 1.5 with bolus feeds. Recommend 350 mL bolus at 5:00, 300 ML bolus at 12:00, and 350 mL bolus at 18:00. Recommend PEG tube be flushed with 30 mL H2O every 4 hours. Once IV fluids are discontinued, recommend additional H2O flush of 200 mL at 8:00, 15:00, and 21:00. TF will provide 1500 kcals and 64 g protein per day. MONITOR / EVAL: TF tolerance, labs, nutritional status. Follow per high nutritional risk guidelines.
--- NOTE | 2016-07-29 17:04 | NUR ---
NUTRITION/PAIN/HEART RATE P-Patient requiring adapter for J-peg feeding. Heart rate in 130's per geotechnical field technician this am. Patient appears to be in pain. I- J-peg adapter attained from Endoscopy, first feeding done at 1400, 200mls. New orders for Metoprolol received and medications given to reduce heart rate. E-Patient tolerated feeding well, caregiver at [facility] states that better to give feeding through bolus x3/day due to patient has Hx of pulling out J-tubes connected to pump. MS 2mg given q4 for pain hard to assess due to patient is non verbal, but she appears more comfortable today. Heart rate now in high 80's low 90's after Metoprolol and pain medications.
[2016-07-30] VITALS (8 sets, daily range): BP systolic 142–157; BP diastolic 56–86; PULSE 84–116; RESP 16–20; O2SAT 92–95
--- NOTE | 2016-07-30 06:15 | NUR ---
Pain Pt. is nonverbal. However, pt. was able to shake head yes when she was in pain. 2mg IV morphine given, and afterwards feldt score was 0. Will continue to monitor.
[2016-07-30] MEDS: 0.9% Sodium Chloride 1,000 ML IV SCH (07:30)
[2016-07-30] MEDS: Famotidine Inj 20 MG in IV Premix 1 EACH IV SCH (08:30)
[2016-07-30 08:41] LABS: BASOPHILS % (AUTO) 0.1 % (0-3); EOSINOPHILS % (AUTO) 0.3 % (0-5); MONOCYTES % (AUTO) 8.6 % (4-12); Mean Corpuscular Hemoglobin 31.5 pg (27.0-35.0); Mean Corpuscular Volume 94.9 fL (81-100); NEUTROPHILS % (AUTO) 78.6 % (40-74); Platelet Count 153 bil/L (150-400)
[2016-07-30] MEDS: Morphine 20 mg/mL Oral Syringe G-TUBE PRN ×3 (10:04→20:27)
--- NOTE | 2016-07-30 11:00 | NUR ---
Right Arm Swelling Patient's right arm was noticed to be swollen this AM, IV fluids stopped, IV DC'd intact, and MD notified. Orders for right arm ultrasound and xray as well as order to DC IV access and fluids. Order for medications to be given through PEGtube.
--- NOTE | 2016-07-30 13:26 | PCM.PNORTH ---
Subjective Date of Service: Jul 30, 2016 Visit Information: Reason for Visit Distal Femur Fracture Surgery/Surgery Date L NAILING DISTAL FEMUR 07/28/16 Post-Op Day # Date of Admission: Jul 27, 2016 at 22:46 Hospital Day # Subjective Status post day #2 left distal femur retrograde IM nail. Patient not complaining of the leg today. Patient does not communicate well and her friend states that she has been comfortable. The only thing she is complaining of his right arm pain which has been very swollen today. Seems to hurt her and she screams whenever anyone touches or moves the elbow or hand. Postop General: No Complaints, No Shortness of Breath, No Chest Pain Objective Exam Objective Patient is not alert or oriented, does not answer questions.. Patient is sitting up in the bed and not in acute distress today. Dressing is clean dry and intact. Calf is soft and nontender. Sensation and pulses intact, patient able to wiggle toes with stimulation. Patient has pain when moving the right elbow or hand and will scream out. She has 3+ edema of the entire forearm, elbow, hand region but no erythema. Not painful to the touch just with motion of the elbow or wrist region. Vital Signs and I/O Vital Sign - Last Date Time Temp Pulse Resp B/P Pulse Ox O2 Delivery O2 Flow Rate FiO2 07/30/16 12:44 84 94 Room Air 07/30/16 08:35 37.5 16 150/81 07/30/16 06:11 7.00 Intake and Output 07/29/16 07/29/16 07/30/16 Cumulative From/Thru 15:00 23:00 07:00 07/27/16 20:51 - 07/30/16 06:48 Intake Total 2231 ml 1130 ml 6425 ml Output Total 350 ml 470 ml 2026 ml Balance 1881 ml 660 ml 4399 ml Intake Oral 0 ml 0 ml 0 ml IV Total 2031 ml 1130 ml 6225 ml Tube Feeding 200 ml 200 ml Output Urine Total 350 ml 470 ml 2026 ml # Voids 3 # Bowel Movements 0 0 Lab & Micro Results Laboratory Tests Test 07/30/16 08:33 White Blood Count 12.0th/mm3 (3.8-10.1) Red Blood Count 3.55mil/mm3 (3.90-5.20) Hemoglobin 11.2g/dL (12.0-15.6) Hematocrit 33.7% (35.0-46.0) Mean Corpuscular Volume 94.9fL (81-100) Mean Corpuscular Hemoglobin 31.5pg (27.0-35.0) Mean Corpuscular Hemoglobin Concent 33.2% (32.0-37.0) Red Cell Distribution Width 12.4% (12.3-15.4) Platelet Count 153bil/L (150-400) Neutrophils (%) (Auto) 78.6% (40-74) Lymphocytes (%) (Auto) 11.8% (14-46) Monocytes (%) (Auto) 8.6% (4-12) Eosinophils (%) (Auto) 0.3% (0-5) Basophils (%) (Auto) 0.1% (0-3) Sodium Level 138mEq/L (134-144) Potassium Level 3.4mEq/L (3.5-5.2) Chloride Level 103mEq/L (97-108) Carbon Dioxide Level 20mmol/L (18-29) Blood Urea Nitrogen 11mg/dL (8-27) Creatinine 0.44mg/dL (0.57-1.00) Estimat Glomerular Filtration Rate 202mL/min (>59) Glucose Level 205mg/dL (60-99) Calcium Level 8.0mg/dL (8.5-10.1) Microbiology 07/25/16 Blood Culture - Preliminary, Resulted No growth at 2 days; culture examined... 07/28/16 Urine Culture - Final, Complete No growth (<1,000 organisms/mL) Result Diagram: 07/30/16 0833 07/30/16 0833 Assessment & Plan Impression Status post day #2 left distal femur retrograde IM nail. Patient is stable. Pending x-ray and further investigation into right arm swelling. Problems: Plan Weightbearing: Nonweightbearing Postop hinged brace locked at 70, which is the patient's position of comfort DVT prophylaxis: None Physical therapy for transfers. The patient has significant contracture of the left knee therefore do not overstress motion for the knee as this will stress the surgical repair and fracture site Wound care: Dressing change today. Discussed at length with hospitalist today that the right hand is swollen. The plan is to discontinue the IV, will also obtain x-rays of the elbow and wrist to include the forearm and hand as well to rule out fracture. Possible fluid from loss of IV. We will continue to watch. Discharge plan: Discharge back to [facility] when medically stable Follow-up plan: In 2 weeks at [facility] with QUINN for wound check and at [address] Benito with x-rays VTE Prophylaxis: Other (none due to history of traumatic brain injury) Resuscitation Status: DNR/DNI:Do Not Resuscitate/Intubate Tesfaye Carr PA-C Jul 30, 2016 13:26
--- NOTE | 2016-07-30 15:53 | NUR ---
Dressing Change Completed dressing change with the help of physical therapy to assist with the leg brace. Removed bandage from OR and replaced it with one 8X4 island dressing and two band aids. Incisions were well approximated with minimal brown drainage on the old wrap. Left knee was slightly red and warm to the touch, no signs of extra discomfort when touching the knee. Slight elevation in temperature at 37.5. After dressing change and placing brace back on, patient seems comfortable lying in bed. Patient yelled while moving left leg to remove the brace and richard wrap. Pain medication administered. Will continue to monitor for s/s of infection and pain.
--- NOTE | 2016-07-30 16:32 | DRSVH ---
PROCEDURE: X-RAY RIGHT ELBOW COMPLETE, MINIMUM THREE VIEWS ([id number]) INDICATIONS: PAIN, SWELLING TECHNIQUE: 3 views of the elbow were acquired. COMPARISON: None. FINDINGS: Bones: No fractures or dislocations. No suspicious bony lesions. Soft tissues: No elbow joint effusion. No suspicious soft tissue calcifications. Soft tissues are thickened and mottled appearance. IMPRESSION: No displaced fracture seen. If there is continued pain, followup exam or additional willis ging such as MRI or CT could be performed for further assessment. Dictated by: Kendall Billingsley [facility] Interpreted: Ricardo Mann MD on 07/30/2016 at 13:14 Approved by: Ricardo Mann M.D. on 07/30/2016 at 16:29
--- NOTE | 2016-07-30 16:33 | DRSVH ---
PROCEDURE: US VENOUS ARM DUPLEX UNILATERAL, RIGHT INDICATIONS: eval right upper extremity swelling R/O DVT TECHNIQUE: Real-time imaging, as well as color and pulse Doppler interrogation, was performed of the right upper extremity deep veins from the inferior neck to the antecubital fossa. COMPARISON: None. FINDINGS: The internal jugular vein, visualized portions of the subclavian vein, axillary, and brach ial veins are free of intraluminal thrombus. Where physically possible, the veins are normally compr essible. Color and pulse Doppler demonstrate normal intraluminal flow, with expected phasicity and p ulsatility. Additional scanning of the cephalic vein of the superficial system demonstrate normal co mpressibility, without thrombus. Basilic vein are well-seen. IMPRESSION: No right upper extremity venous thrombosis identified. Dictated by: Kendall DALLAS Interpreted: Ricardo Mann MD on 07/30/2016 at 13:59 Approved by: Ricardo Mann M.D. on 07/30/2016 at 16:30
--- NOTE | 2016-07-30 18:11 | PCM.PNMED ---
Subjective Date of Service Jul 30, 2016 Subjective Patient still nonverbal can make needs known Exam Vital Signs Vital Sign - Last Date Time Temp Pulse Resp B/P Pulse Ox O2 Delivery O2 Flow Rate FiO2 07/30/16 17:26 92 18 153/79 93 Room Air 07/30/16 16:54 37.6 07/30/16 06:11 7.00 Intake and Output 07/29/16 07/29/16 07/30/16 Cumulative From/Thru 15:00 23:00 07:00 07/27/16 20:51 - 07/30/16 06:48 Intake Total 2231 ml 1130 ml 6425 ml Output Total 350 ml 470 ml 2026 ml Balance 1881 ml 660 ml 4399 ml Intake Oral 0 ml 0 ml 0 ml IV Total 2031 ml 1130 ml 6225 ml Tube Feeding 200 ml 200 ml Output Urine Total 350 ml 470 ml 2026 ml # Voids 3 # Bowel Movements 0 0 Exam Gen.- A, no apparent distress. Head-atraumatic/normocephalic Eyes- open conjunctiva clear, pupils equal, nonicteric Mouth- no deformity of lips ENT- ears no deformity, nose no deformity Neck- supple/trach midline CVS-tachycardic Lungs-respirations regular and nonlabored GI-flat Musc- right upper extremity markedly more swollen than left in edema almost up to the mid shaft of the humerus. Neuro- cranial nerves II through XII intact to gross examination, nonfocal Skin- warm and dry, no rashes/lesions/wounds noted Psych-nonverbal, smiles and seems to interact Lab and Diagnostics Result Diagram: 07/30/16 0833 07/30/16 0833 X-Rays, CTs and MRIs CT BRAIN WITHOUT CONTRAST ([id number]) IMPRESSION: 1. No acute intracranial process. 2. Moderate atrophy and chronic microvascular ischemic changes. 3. Ventricular shunt as above. No priors are available for comparison. Dictated by: Mikaela Orourke M.D. on 07/27/2016 at 21:18 CT CERVICAL SPINE WITHOUT CONTRAST ([id number]) IMPRESSION: Multilevel degenerative changes without visualized fracture. Dictated by: Mikaela Orourke M.D. on 07/27/2016 at 21:16 Approved by: Mikaela Orourke M.D. on 07/27/2016 at 21:18 X-RAY CHEST ONE VIEW, PORTABLE ([id number] IMPRESSION: 1. No acute pulmonary process. 2. Multiple rib deformities on the right, appearing grossly unchanged. It is noted that there is appearance of questionable increased lucency in the posterior lateral right second rib. Subacute fracture cannot be definitively excluded versus artifact. Dictated by: Mikaela Orourke M.D. on 07/27/2016 at 20:54 Approved by: Mikaela Orourke M.D. on 07/27/2016 at 20:57 X-RAY LEFT FEMUR, TWO VIEWS ([id number]) IMPRESSION: Comminuted distal femoral fracture as above. Dictated by: Mikaela Orourke M.D. on 07/27/2016 at 21:12 Approved by: Mikaela Orourke M.D. on 07/27/2016 at 21:13 X-RAY PELVIS W/LAT HIP (LT) ([id number]) IMPRESSION: Limited evaluation as above without gross visualized fracture. If clinical concern persists, additional imaging is recommended. Dictated by: Mikaela Orourke M.D. on 07/27/2016 at 21:07 Approved by: Mikaela Orourke M.D. on 07/27/2016 at 21:08 PROCEDURE: X-RAY LEFT KNEE, ONE OR TWO VIEWS ([id number]) IMPRESSION: Distal femoral fracture with anterior angulation. Dictated by: Mikaela Orourke M.D. on 07/27/2016 at 21:09 Approved by: Mikaela Orourke M.D. on 07/27/2016 at 21:12 Assessment & Plan 70-year-old female admitted with hip fracture 07/27 , long-term [facility] resident who presents after a ground-level fall reportedly 2 feet from her bed to a concrete floor the previous night. 07/28 patient apparently had an unremarkable ORIF L hip 07/29 minute patient's advocate today. She seems much more awake and interactive. She has hypertension/tachycardia him starting metoprolol for this. Clinically she is stable. 07/30 in upper extremity markedly more swollen, need to follow-up Doppler arm negative DVT, x-ray does not show any fracture. Blood pressure uncontrolled increasing dose of metoprolol as patient still somewhat tachycardic. Labs are stable, potassium being replaced in follow-up in a.m. # HTN-- Lisinopril 30mg daily on hold, - Starting metoprolol 50mg every 3 times a day for hypertension/tachycardia # Acute displaced comminuted left distal femur fracture ORIF complete 07/28 - Reportedly from a ground-level fall - [facility] reports that the patient has not recieved a tube feeding since noon of July 27 - Morphine 1-2 mg IV Q4 for pain control - Zofran 4-8 mg IV every 4 when necessary # Hx TBI- Patient is nonverbal and fed through her gastrostomy tube # Chronic generalized muscular contracture- baclofen 10mg every 6 hours # chronic pain- - chronic methadone 5mg daily we will resume perhaps 07/29 DVT prophylaxis: Contraindicated given recent trauma GI prophylaxis: Famotidine 20 mg IV twice a day CODE STATUS: POLST from [facility] indicates DNR/DNI with limited interventions however is dated from 2003 but on discussion with [facility] the is reportedly reviewed this document was recently as 2017. GI Prophylaxis: Proton Pump Inhibitor VTE Prophylaxis: Other (none due to history of traumatic brain injury) VTE Mechanical Devices: Intermittant Pneumatic CD Resuscitation Status: DNR/DNI:Do Not Resuscitate/Intubate Errol Hernandez MD Jul 30, 2016 18:11
[2016-07-30] MEDS: Potassium Chloride 20 mEq/15 mL 15mL Oral Soln G-TUBE SCH (20:26)
[2016-07-30] MEDS: Famotidine 8 mg/mL 50 mL Suspension G-TUBE SCH (20:27)
--- NOTE | 2016-07-31 02:19 | NUR ---
pain with movement / moaning / HR 94. Turn Q 2hr / support of LLE and brace given to keep body alignment. Heels floated - no skin breakdown on buttocks. Pain meds given. Tolerated tube feed / HOB elevated. Resting quietly between turning.
[2016-07-31 04:00] VITALS: BP 143/82; PULSE 97
[2016-07-31] MEDS: Morphine 20 mg/mL Oral Syringe G-TUBE PRN ×2 (04:48→12:17)
[2016-07-31 05:01] VITALS: RESP 20; O2SAT 93
[2016-07-31 06:15] LABS: Mean Corpuscular Hemoglobin 31.1 pg (27.0-35.0); Mean Corpuscular Volume 93.8 fL (81-100)
[2016-07-31] MEDS: Potassium Chloride 20 mEq/15 mL 15mL Oral Soln G-TUBE SCH (08:13)
[2016-07-31] MEDS: Famotidine 8 mg/mL 50 mL Suspension G-TUBE SCH (08:13)
[2016-07-31 08:14] VITALS: BP 147/83; PULSE 89; RESP 16; O2SAT 92
--- NOTE | 2016-07-31 10:08 | PCM.PNORTH ---
Subjective Date of Service: Jul 31, 2016 Visit Information: Reason for Visit Distal Femur Fracture Surgery/Surgery Date L NAILING DISTAL FEMUR 07/28/16 Post-Op Day # Date of Admission: Jul 27, 2016 at 22:46 Hospital Day # Subjective Found patient awake this morning sitting up in bed. Patient does fall you with her eyes and watches we are doing and makes a small yelping sound occasionally but there is no meaningful communication. I looked at patient's wound this morning which is in very good condition and bandages were changed. Her bandages had been changed yesterday on 07/30/2016 at the direction of Tesfaye Carr by the nurses. Her knee orthosis is in place and all appears well. Patient's right arm still appears swollen but is soft in nature. There is some bruising about the radial aspect of the forearm at mid shaft. Nursing staff tells me this morning that her arm is significantly improved from yesterday at which time it was very firm and much more swollen. Nursing staff believes patient's IV may have infiltrated and that this is resolving now. Patient displays no pain or concern if her right arm is touched. Postop General: No Complaints, No Shortness of Breath, No Chest Pain Objective Exam Objective Awake and in no apparent distress Interoperative dressings are changed this morning and wounds are in good condition. Patient's rehabilitation knee arthrosis is in place and fitting well. Vital Signs and I/O Vital Sign - Last Date Time Temp Pulse Resp B/P Pulse Ox O2 Delivery O2 Flow Rate FiO2 07/31/16 08:14 37.5 89 16 147/83 92 Room Air 07/30/16 22:17 2.00 Intake and Output 07/30/16 07/30/16 07/31/16 Cumulative From/Thru 15:00 23:00 07:00 07/27/16 20:51 - 07/31/16 05:32 Intake Total 1350 ml 0 ml 7775 ml Output Total 350 ml 325 ml 2701 ml Balance 1000 ml -325 ml 5074 ml Intake Oral 0 ml 0 ml 0 ml IV Total 6225 ml Tube Feeding 650 ml 850 ml Tube Irrigant 700 ml 700 ml Output Urine Total 350 ml 325 ml 2701 ml # Voids 3 # Bowel Movements 0 0 Lab & Micro Results Laboratory Tests Test 07/31/16 05:30 White Blood Count 10.8th/mm3 (3.8-10.1) Red Blood Count 3.41mil/mm3 (3.90-5.20) Hemoglobin 10.6g/dL (12.0-15.6) Hematocrit 32.0% (35.0-46.0) Mean Corpuscular Volume 93.8fL (81-100) Mean Corpuscular Hemoglobin 31.1pg (27.0-35.0) Mean Corpuscular Hemoglobin Concent 33.1% (32.0-37.0) Red Cell Distribution Width 12.1% (12.3-15.4) Platelet Count 172bil/L (150-400) Sodium Level 136mEq/L (134-144) Potassium Level 3.8mEq/L (3.5-5.2) Chloride Level 100mEq/L (97-108) Carbon Dioxide Level 23mmol/L (18-29) Blood Urea Nitrogen 13mg/dL (8-27) Creatinine 0.32mg/dL (0.57-1.00) Estimat Glomerular Filtration Rate 292mL/min (>59) Glucose Level 140mg/dL (60-99) Calcium Level 8.1mg/dL (8.5-10.1) Microbiology 07/25/16 Blood Culture - Preliminary, Resulted No growth at 2 days; culture examined... 07/28/16 Urine Culture - Final, Complete No growth (<1,000 organisms/mL) Result Diagram: 07/31/16 0530 07/31/16 0530 General Appearance: No Acute Distress Catheters: Urethral 2 Way Vick Assessment & Plan Plan Postop day #3 from left retrograde femoral IM nail placed on 07/28/[address] Anup Benito. Continue nonweightbearing at the left lower extremity. Continue rehabilitation knee orthosis locked at patient's typical knee flexion contracture position of approximately 70. NOTE: Do not lift patient's left leg by her foot. If left leg must be moved please use two hand support and manipulate the leg at the hip as little as possible with no stress placed on the brace or knee. Patient suffers from severe knee flexion contractures and has very little mobility at the left knee under her usual condition pre-femur fracture. DVT prophylaxis: None Physical therapy for transfers and positioning as needed with above precautions. Wound care: Dressing changes at the knee as needed when solar loosened. Right upper extremity swelling may likely have been from IV infusion and per dressings observation has improved significantly today with the arm becoming softer to palpation and much less swollen. Patient displays no pain with manipulation of the right arm. We will continue watchful waiting regarding the patient's right upper extremity. Follow-up in 2 weeks at [facility] orthopedic clinic with [facility] provider for suture removal. Follow-up in 6 weeks at [facility] orthopedic clinic with Dr. Anup Benito with left two-view femur x-rays on arrival. Follow-up in 12 weeks at [facility] orthopedic clinic with Dr. Anup Benito with left two-view femur x-rays on arrival. Orthopedics thanks hospitalist service for their help in the medical management of this patient. Orthopedics will sign off at this time but as always we will remain available for treatment or consultation as needed. Anticipate discharge to [facility] longterm facility by hospitalist service when patient is determined to be medically stable to do so. VTE Prophylaxis: Other (none due to history of traumatic brain injury) Resuscitation Status: DNR/DNI:Do Not Resuscitate/Intubate Channing Mcwilliams PA-C Jul 31, 2016 10:08
--- NOTE | 2016-07-31 10:20 | PCM.DIMED ---
Discharge Instructions Date of Service Jul 31, 2016 Dates of Hospitalization Jul 27, 2016 at 22:46 Discharge Diagnosis Discharge Diagnosis Left hip fracture, right arm swelling Diet Discharge Diet: Other (resume tube feeds as previously) Activity Discharge Activity: Other (weightbearing as tolerated I believe the patient is bedbound and Rosemary lift transfer at baseline) Call your provider Call your provider for: Fever or Chills, Weakness (unilateral) ( nonweightbearing left lower extremity do not lift left leg by foot) Patient Instructions Patient Instructions Patient going back to SNF level care Follow-up plan Aches be seen by facility provider as previously, do not know the provider. Errol Hernandez MD Jul 31, 2016 10:20
[2016-07-31] MEDS ORDERED: MORP100S5 G-TUBE (10:24)
[2016-07-31] MEDS ORDERED: METO50TA3 G-TUBE (10:24)
[2016-07-31] MEDS ORDERED: POTA20LI2 G-TUBE (10:24)
--- NOTE | 2016-07-31 10:52 | NUR ---
Called and spoke with Megan at [facility] and let her know patient is ready to return today. They can accept her when ready. Updated TRAVEL OCCUPATIONAL THERAPIST Addendum: 07/31/16 at 1250 by OSCAR MACIAS CM Faxed orders to [facility] and placed copy in the chart. [facility] will transport patient at 1300 per MD order.
--- NOTE | 2016-07-31 11:59 | NUR ---
Social Work: Discharge D: EMR reviewed. Pt is on day 4 of hospitalization. Pt to discharge to [facility], [facility] to follow. [facility] confirmed pt will transport to [facility] today via BLS at 1300. [facility] completed transfer packet and placed at nurses station for pick-up. SW signed BLS form. SW informed RN and pt. All agreeable to plan. A: Pt who is total assist at baseline and will return to [facility] P: Pt to return to [facility] today at 1300 via BLS with [facility] to follow. Paperwork in chart. SW will continue to follow. All updated and agreeable to plan. ARIANNA Sheriff
[2016-07-31 12:16] VITALS: BP 168/84; PULSE 100; RESP 20; O2SAT 94
--- NOTE | 2016-07-31 13:08 | NUR ---
DISCHARGE Roxanol via her Gtube has been effective for pain control. Patient continues to be NPO. No gastric residual noted. Tolerating tube feedings and flushes without any problems. No vomiting or emesis noted. P02 in the mid 90's. IFC intact and draining to pale colored UO. No BM since admit. Dulcolax suppository administered this morning. No BM at this time. Dressing was changed by KENDRA Ellis this morning. Dressing is CDI. Brace is in place. RA is less swollen and is soft to touch. No s/sx of pain noted when her R arm is being touched. Sponge bath and skin care rendered. No IV access. Report given to Karlene in [facility]. Transported to [facility] via BLS.
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
== END 2016-07-31 13:15 | DRG 480 ==
LOC: SED 18:22 → OSC 22:46
PROVIDERS: ADMIT Hospitalist; ATTEND Hospitalist
PROC: 0QHC36Z Insertion of Intramedullary Internal Fixation Device into Left Lower Femur, Percutaneous Approach (ICD-10-PCS; principal; 2016-07-29)
PROC: 3E0G76Z Introduction of Nutritional Substance into Upper GI, Via Natural or Artificial Opening (ICD-10-PCS; 2016-07-29)
DX: S72.402A Unspecified fracture of lower end of left femur, initial encounter for closed fracture (principal); R53.2 Functional quadriplegia; R47.1 Dysarthria and anarthria; M79.89 Other specified soft tissue disorders; W06.XXXA Fall from bed, initial encounter; I10 Essential (primary) hypertension; M24.562 Contracture, left knee; Z86.73 Personal history of transient ischemic attack (TIA), and cerebral infarction without residual deficits; Z93.1 Gastrostomy status; Z79.891 Long term (current) use of opiate analgesic; Y92.003 Bedroom of unspecified non-institutional (private) residence as the place of occurrence of the external cause; Y93.9 Activity, unspecified; Z87.820 Personal history of traumatic brain injury; V89.2XXS Person injured in unspecified motor-vehicle accident, traffic, sequela